=== PATIENT | male | born 1940 | race Caucasian/White ===

== ENCOUNTER 2016-09-06 17:47 | Emergency (ER) | payer BC, MEDICARE ==
[2016-09-06] MEDS ORDERED: Sodium Chloride 0.9% 1000 ML 1,000 ML IV STA (18:38)
[2016-09-06 18:43] LABS: BASOPHIL % 0.6 % (0.0-0.4); Eosinophil % 7.3 % (0.00-5.0); Granulocytes % 58.4 % (36.0-66.0); Mean Corpuscular Hemoglobin 29.3 pg (26-32); Monocytes % 13.7 % (0.0-12.0); Platelet Count 152 K/mm3 (150-450); Red Blood Count 5.25 M/mm3 (4.1-5.6); Red Cell Distribution Width 14.3 % (11.5-14.0)
--- NOTE | 2016-09-06 18:45 | ERPHSYRPT ---
- History of Present Illness Time Seen by Provider: 09/06/16 18:29 Source: patient Exam Limitations: no limitations Patient Subjective Stated Complaint: sudden onset llq abd pain at 1500 today. also having nausea. Triage Nursing Assessment: ambulated to room per self. skin w/d, color normal, resp easy. holding left abd. abd soft, tender llq. normal bowel sounds Physician History: This is a 76-year-old white male with history of high blood pressure He arrives with complaint of cough for 2-1/2 days she states this morning he took some Benadryl and some Advil that he states this afternoon he began to have severe crampy pain located in the left lower quadrant radiating to his left flank going on since 1500 patient states he has had nausea and has no vomiting no melena no hematochezia he states he has not been constipated. He denies any urinary symptoms. Patient does state that he has had a sore throat. Past medical history includes hernia, kidney stones Past surgical history includes appendectomy hernia surgery tumor removed off his back cyst and appendectomy. Timing/Duration: day(s) (cough for 2-1/2 dayswith sore throat, left lower quadrant and flank pain since 3:00 this afternoon) Severity: moderate Modifying Factors: Improves With: other (patient took Benadryl and Advil prior to symptoms) Associated Symptoms: nausea, abdominal pain (left lower quadrant abdominal pain) , cough, No vomiting, No shortness of breath, No heartburn, No diaphoresis, No chills, No chest pain, No fever, No headaches, No loss of appetite, No malaise, No rash, No syncope, No seizure, No weakness Allergies/Adverse Reactions: No Known Drug Allergies Allergy (Verified 09/06/16 18:00) Home Medications: Lisinopril 20 mg [Zestril 20 MG] 20 mg PO DAILY 09/06/16 [History] Hx Tetanus, Diphtheria Vaccination/Date Given: No Hx Influenza Vaccination/Date Given: Yes Hx Pneumococcal Vaccination/Date Given: No - Review of Systems Constitutional: No Fever, No Chills Eyes: No Symptoms Ears, Nose, & Throat: No Symptoms, Nose Congestion, Throat Pain, No Ear Pain, No Ear Discharge, No Hearing Changes, No Tinnitus, No Nose Pain, No Epistaxis, No Mouth Swelling, No Loose Teeth, No Throat Swelling, No Painful Swallowing, No Snoring Respiratory: Cough, No Cyanosis Cardiac: No Chest Pain, No Edema, No Syncope Abdominal/Gastrointestinal: Abdominal Pain (left lower quadrant abdominal pain) , Nausea, No Vomiting, No Diarrhea, No Constipation, No Hematemesis, No Hematochezia, No Melena, No Dysphagia, No Appetite Changes Genitourinary Symptoms: Flank Pain, No Dysuria, No Frequency, No Hematuria, No Hesitancy, No Incontinence, No Urgency, No Urinary Retention Musculoskeletal: No Symptoms Skin: No Rash Neurological: No Dizziness, No Focal Weakness, No Sensory Changes Psychological: No Symptoms Endocrine: No Symptoms All Other Systems: Reviewed and Negative - Past Medical History Pertinent Past Medical History: Yes Neurological History: No Pertinent History ENT History: No Pertinent History Cardiac History: No Pertinent History Respiratory History: No Pertinent History Endocrine Medical History: No Pertinent History Musculoskeletal History: No Pertinent History GI Medical History: No Pertinent History, Hernia History: Other Psycho-Social History: No Pertinent History Male Reproductive Disorders: No Pertinent History Other Medical History: kidney stones and hernia - Past Surgical History Past Surgical History: Yes Neuro Surgical History: No Pertinent History Cardiac: No Pertinent History Respiratory: No Pertinent History Gastrointestinal: Appendectomy, Hernia Repair Genitourinary: No Pertinent History Musculoskeletal: No Pertinent History Male Surgical History: No Pertinent History Other Surgical History: tumor removed off back cyst,appy 1965 - Social History Smoking Status: Never smoker Exposure to second hand smoke: No Drug Use: none Patient Lives Alone: Yes - Nursing Vital Signs Nursing Vital Signs: Initial Vital Signs Temperature 97.3 F Temperature Source Oral Pulse Rate 76 Respiratory Rate 18 Blood Pressure [] 139/77 Pain Intensity 5 - Physical Exam General Appearance: no apparent distress, alert, other (hoarse voice) Eye Exam: PERRL/EOMI, eyes nml inspection, other (fundi unremarkable) Ears, Nose, Throat Exam: normal ENT inspection, TMs normal, pharynx normal, moist mucous membranes Neck Exam: normal inspection, non-tender, supple, full range of motion Respiratory Exam: normal breath sounds, lungs clear, No respiratory distress Cardiovascular Exam: regular rate/rhythm, normal heart sounds, normal peripheral pulses Gastrointestinal/Abdomen Exam: soft, normal bowel sounds, tenderness (left lower quadrant tenderness, positive bowel sounds negative mass negative rebound) , No mass, No rebound Male Genitalia Exam: normal genitalia, other (normal male genitalia testicles descended bilaterally) Back Exam: normal inspection, normal range of motion, No CVA tenderness, No vertebral tenderness Extremity Exam: normal inspection, normal range of motion, pelvis stable Neurologic Exam: alert, oriented x 3, cooperative, normal mood/affect, nml cerebellar function, nml station & gait, sensation nml, No motor deficits Skin Exam: normal color, warm, dry, No rash SpO2 Interpretation: normal (96%) SpO2: 96 Oxygen Delivery: Room Air - Course Nursing assessment & vital signs reviewed: Yes - Radiology Exams Chest X-ray Interpretation: Reviewed by me, Other (no acute disease process) - CT Exams Abdomen/Pelvis CT Interpretation: Tele-radiologist Report (CT abdomen and pelvis impression obstructing 2.4 mm distal left ureteral stone, diverticulosis) Ordered Tests: Active Orders 24 hr Category Date Time Status IV Insertion STAT Care 09/06/16 18:38 Active ABDOMEN AND PELVIS W/0 CONTRAS [CT] Stat Exams 09/06/16 18:38 Taken CHEST 1 VIEW (PORTABLE) Stat Exams 09/06/16 18:38 Taken AMYLASE Stat Lab 09/06/16 18:20 Completed CBC W DIFF Stat Lab 09/06/16 18:20 Completed CMP Stat Lab 09/06/16 18:20 Completed CULTURE, THROAT Stat Lab 09/06/16 18:45 Received LIPASE Stat Lab 09/06/16 18:20 Completed STREP SCREEN-BETA A Stat Lab 09/06/16 18:45 Completed UA W/ MICROSCOPIC Stat Lab 09/06/16 18:40 Completed Medication Summary Discontinued Medications Generic Name Dose Route Start Last Admin Trade Name Crispinq PRN Reason Stop Dose Admin Hydrocodone Bitart/Acetaminophen 2 tab 09/06/16 20:22 [place] 5/325 Mg PO 09/06/16 20:23 SENT HOME W/ PATIENT ONE Azithromycin 500 mg 09/06/16 20:22 Zithromax 250 Mg Tablet PO 09/06/16 20:23 STAT ONE Sodium Chloride 1,000 mls @ 999 mls/hr 09/06/16 18:38 09/06/16 18:48 Sodium Chloride 0.9% 1000 Ml IV 09/06/16 19:38 999 mls/hr .Q1H1M STA Administration Sodium Chloride Confirm 09/06/16 18:47 Sodium Chloride 0.9% 1000 Ml Administered 09/06/16 18:48 Dose 1,000 mls @ ud .ROUTE .STK-MED ONE Ketorolac Tromethamine 30 mg 09/06/16 19:57 09/06/16 20:05 Toradol 30 Mg Injection IV 09/06/16 19:58 30 mg STAT ONE Administration Ketorolac Tromethamine Confirm 09/06/16 20:05 Toradol 30 Mg Injection Administered 09/06/16 20:06 Dose 30 mg .ROUTE .STK-MED ONE Tamsulosin HCl 0.4 mg 09/06/16 19:58 09/06/16 20:05 Flomax 0.4 Mg PO 09/06/16 19:59 0.4 mg ONCE STA Administration Tamsulosin HCl Confirm 09/06/16 20:05 Flomax 0.4 Mg Administered 09/06/16 20:06 Dose 0.4 mg .ROUTE .STK-MED ONE Lab/Rad Data: Laboratory Result Diagrams 09/06/16 18:20 09/06/16 18:20 Laboratory Results 09/06/16 09/06/16 09/06/16 Range/Units 18:45 18:40 18:20 WBC (4.0-10.5) K/mm3 RBC (4.1-5.6) M/mm3 Hgb (12.5-18.0) gm/dl Hct (42-50) % MCV (78-100) fl MCH (26-32) pg MCHC (32-36) g/dl RDW (11.5-14.0) % Plt Count (150-450) K/mm3 MPV (6-9.5) fl Gran % (36.0-66.0) % Lymphocytes % (24.0-44.0) % Monocytes % (0.0-12.0) % Eosinophils % (0.00-5.0) % Basophils % (0.0-0.4) % Basophils # (0-0.4) Sodium 140 (136-145) mEq/L Potassium 4.1 (3.5-5.1) mEq/L Chloride 104 (98-107) mEq/L Carbon Dioxide 24.4 (21-32) mEq/L Anion Gap 16.1 H (5-15) MEQ/L BUN 18 (9-20) mg/dL Creatinine 1.19 (0.55-1.30) mg/dl Estimated GFR > 60 ML/MIN Glucose 129 H (70-110) MG/DL Calcium 9.0 (8.5-10.1) mg/dL Total Bilirubin 0.30 (0.2-1.0) mg/dL AST 19 (15-37) U/L ALT 13 (12-78) U/L Alkaline Phosphatase 85 (46-116) U/L Serum Total Protein 7.7 (6.4-8.2) gm/dL Albumin 3.8 (3.4-5.0) g/dL Amylase 55 (25-115) U/L Lipase 104 (73-393) U/L Ur Collection Type CLEAN CATCH Urine Color YELLOW (YELLOW) Urine Appearance CLEAR (CLEAR) Urine pH 5.0 (5-6) Ur Specific [place] 1.025 (1.005-1.025) Urine Protein NEGATIVE (Negative) Urine Glucose (UA) NEGATIVE (NEGATIVE) mg/dL Urine Ketones NEGATIVE (NEGATIVE) Urine Nitrite NEGATIVE (NEGATIVE) Urine Bilirubin NEGATIVE (NEGATIVE) Urine Urobilinogen 0.2 (0-1) mg/dL Urine WBC (Auto) NEGATIVE (NEGATIVE) Urine RBC (Auto) LARGE (0-5) [place]re/ul Urine Microscopic RBC 10-15 (0-2) /HPF Ur Epithelial Cells FEW (FEW) /HPF Streptococcus Screen NEGATIVE (Negative) Specimen Received 09/06/16:1845 09/06/16 Range/Units 18:20 WBC 5.0 (4.0-10.5) K/mm3 RBC 5.25 (4.1-5.6) M/mm3 Hgb 15.4 (12.5-18.0) gm/dl Hct 45.7 (42-50) % MCV 87.0 (78-100) fl MCH 29.3 (26-32) pg MCHC 33.7 (32-36) g/dl RDW 14.3 H (11.5-14.0) % Plt Count 152 (150-450) K/mm3 MPV 12.0 H (6-9.5) fl Gran % 58.4 (36.0-66.0) % Lymphocytes % 20.0 L (24.0-44.0) % Monocytes % 13.7 H (0.0-12.0) % Eosinophils % 7.3 H (0.00-5.0) % Basophils % 0.6 (0.0-0.4) % Basophils # 0.03 (0-0.4) Sodium (136-145) mEq/L Potassium (3.5-5.1) mEq/L Chloride (98-107) mEq/L Carbon Dioxide (21-32) mEq/L Anion Gap (5-15) MEQ/L BUN (9-20) mg/dL Creatinine (0.55-1.30) mg/dl Estimated GFR ML/MIN Glucose (70-110) MG/DL Calcium (8.5-10.1) mg/dL Total Bilirubin (0.2-1.0) mg/dL AST (15-37) U/L ALT (12-78) U/L Alkaline Phosphatase (46-116) U/L Serum Total Protein (6.4-8.2) gm/dL Albumin (3.4-5.0) g/dL Amylase (25-115) U/L Lipase (73-393) U/L Ur Collection Type Urine Color (YELLOW) Urine Appearance (CLEAR) Urine pH (5-6) Ur Specific [place] (1.005-1.025) Urine Protein (Negative) Urine Glucose (UA) (NEGATIVE) mg/dL Urine Ketones (NEGATIVE) Urine Nitrite (NEGATIVE) Urine Bilirubin (NEGATIVE) Urine Urobilinogen (0-1) mg/dL Urine WBC (Auto) (NEGATIVE) Urine RBC (Auto) (0-5) Tigre/ul Urine Microscopic RBC (0-2) /HPF Ur Epithelial Cells (FEW) /HPF Streptococcus Screen (Negative) Specimen Received - Progress Progress: improved Progress Note: 09/06/16 19:59 This is a 76-year-old white male he arrives with complaints of a cold symptoms for approximately 2-3 days he's had a sore throat cough. He states today at about 3:00 he began to have pain in the left lower quadrant which was sharp severe radiating to his left flank he had no vomiting no urinary symptoms. Patient does have 10:15 red cells per high-power field in his urine chemistry essentially normal CBC is normal CT of the abdomen shows an obstructing 2.4 mm distal left ureteral stone and diverticulitis . Patient actually stated he was getting better Will upon initial arrival and was not needing pain medication now he states he is starting to have some left lower quadrant pain which has increased. Patient has received IV normal saline Will give patient Toradol 30 mg IV. Also will give patient Flomax 0.4 mg by mouth. Will plan home with Flomax 0.4 mg orally daily, [place] 5/325 #20 one to 2 orally every 4-6 hours as needed for pain. Patient is to drink plenty of fluids strain his urine. Will place patient on Zithromax for his bronchitis. Patient is to follow-up with his family doctor He is return for acute distress or for severe symptoms 09/06/16 20:23 Patient is feeling better after Toradol 30 mg IV. Will give patient Zithromax 500 mg here in the emergency room. Will give patient [place] 5/325 2 tablets to go home. He has been prescribed it with fluid prescription for Flomax, Zithromax, [place]. He has been offered a multiple times further pain medications he does not want these at this time. Patient will be discharged. - Departure Time of Disposition: 20:24 Departure Disposition: Home Clinical Impression: Left flank pain, Abdominal pain, left lower quadrant, Bronchitis Urolithiasis Qualifiers: Urinary calculus location: ureter Qualified Code(s): N20.1 - Calculus of ureter Condition: Fair Critical Care Time: No Referrals: TANVI ALICIA [Primary Care Provider] - Additional Instructions: Return home. Plenty of fluids. Zithromax Z-MELISSA as directed. Flomax 0.4 mg one orally daily #10. [place] 5/325 #20 one to 2 orally every 4-6 hours as needed for pain. Strain all urine. Follow-up with your family doctor. Return for acute distress or for severe symptoms. Prescriptions: Azithromycin 250 mg [Zithromax 250 MG TABLET] 0 mg PO ZPACK #6 tablet Hydrocodone/Acetaminophen [[place] 5-325 Tablet] 1 - 2 tab PO Q4-6HPRN PRN #20 tablet PRN Reason: Pain Tamsulosin HCl 0.4 mg [Flomax 0.4 MG] 0.4 mg PO DAILY #10 cap
[2016-09-06] MEDS ORDERED: Sodium Chloride 0.9% 1000 ML 1,000 ML ONE (18:47)
[2016-09-06 18:52] LABS: ALBUMIN 3.8 g/dL (3.4-5.0); ALKALINE PHOSPHATASE 85 U/L (46-116); ANION GAP 16.1 MEQ/L (5-15); BLOOD UREA NITROGEN 18 mg/dL (9-20); CHLORIDE 104 mEq/L (98-107); Carbon Dioxide 24.4 mEq/L (21-32); Glucose 129 MG/DL (70-110); LIPASE 104 U/L (73-393); Potassium 4.1 mEq/L (3.5-5.1); SGOT/AST 19 U/L (15-37); SGPT/ALT 13 U/L (12-78); SODIUM 140 mEq/L (136-145); Total Protein 7.7 gm/dL (6.4-8.2)
[2016-09-06 18:57] LABS: ADD URINE CULTURE? NO (NO); COMPLETE URINE MICROSCOPIC? YES; Collection Type CLEAN CATCH
[2016-09-06 18:58] LABS: Epithelial Cells FEW /HPF (FEW)
[2016-09-06 19:18] VITALS: PULSE 76
[2016-09-06] MEDS ORDERED: TORAdol 30 mg Injection IV ONE (19:57)
[2016-09-06] MEDS ORDERED: Flomax 0.4 MG PO STA (19:58)
[2016-09-06] MEDS ORDERED: Flomax 0.4 MG ONE (20:05)
[2016-09-06] MEDS ORDERED: TORAdol 30 mg Injection ONE (20:05)
[2016-09-06] MEDS ORDERED: NORCO 5/325 MG PO ONE (20:22)
[2016-09-06] MEDS ORDERED: Zithromax 250 MG TABLET PO ONE (20:22)
[2016-09-06 20:29] VITALS: BP 146/71; O2SAT 9
[2016-09-06] MEDS ORDERED: Zithromax 250 MG TABLET ONE (20:31)
[2016-09-06] MEDS ORDERED: NORCO 5/325 MG ONE (20:32)
--- NOTE | 2016-09-06 21:02 | XRAY ---
Indication: Cough. Comparison: None Portable chest slightly underinflated with minimal bibasilar atelectasis/scarring and a few scattered calcified granulomas. Remaining heart and lungs unremarkable. Bony thorax intact with osteopenia and degenerative changes. Impression: Nonacute underinflated chest with evidence for old granulomatous disease.
--- NOTE | 2016-09-06 21:07 | XRAY ---
Indication: Left lower quadrant and low back pain. Multiple contiguous axial images obtained through the abdomen and pelvis without contrast as ordered. Comparison: None Lung bases demonstrates right basilar dependent atelectasis/scarring and right lower lobe bleb. Heart is not enlarged. There is a 2-3 mm distal left ureter calculus just proximal to the UVJ. The more proximal left ureter is mildly prominent and there is moderate hydronephrosis consistent with partial obstructive uropathy. Additional bilateral renal microcalculi and bilateral renal cysts, several cysts appearing slightly dense. Noncontrasted stomach and bowel loops appear nonobstructed. Sigmoid diverticulosis without diverticulitis. No free fluid/air. A few hepatic cysts and calcified hepatic/splenic granulomas. Remaining liver, gallbladder, pancreas, spleen, adrenal glands, and bladder appear unremarkable for noncontrast exam. Mild aortoiliac calcifications. Osseous structures intact with mild/moderate degenerative changes throughout the spine including double curvature scoliosis. Impression: 1. There is a 2-3 mm distal left ureter calculus producing partial obstruction. Additional bilateral renal microcalculi and bilateral renal cysts. 2. Incidental sigmoid diverticulosis and hepatic cysts. Comment: Preliminary interpretation was made by [facility]. No critical discrepancy. CTDI 21.80
== END 2016-09-06 20:48 | disposition home or self-care (01) ==
LOC: ED 17:47
DX: R10.32 Left lower quadrant pain (principal); R10.9 Unspecified abdominal pain; J40 Bronchitis, not specified as acute or chronic; I10 Essential (primary) hypertension; Z79.899 Other long term (current) drug therapy; R11.0 Nausea
CPT/HCPCS: 36000; 36415; 71010; 74176; 80053; 81000; 82150; 83690; 85025; 87070; 87430; 96360; 96361; 96365; 99284; 99285; J1885; A9270-GY

== ENCOUNTER 2018-08-02 11:31 | Emergency (ER) | payer MEDICARE ==
--- NOTE | 2018-08-02 11:49 | ERPHSYRPT ---
- History of Present Illness Time Seen by Provider: 08/02/18 11:47 Historian: patient Patient Subjective Stated Complaint: PT states "I went to Dr. Alicia 3 days ago with abdominal pain and vomiting. The pain is now in my lower right groin and I am passing sticky black stools and vomiting up pepper looking vomit." Triage Nursing Assessment: Pt presented alert and oriented X 3, skin pwd. Pt ambulates with a hunched over gait, able to speak in clear full sentences. Pt moaning and unable to sit still. Physician History: mild to mod 4 days of constant right lower quad ache pain and dark stooling, not dizzy, no fever, no injury, hx left inguinal hernia surg Allergies/Adverse Reactions: No Known Drug Allergies Allergy (Verified 09/06/16 18:00) Home Medications: Omeprazole 40 mg PO DAILY 08/02/18 [History] Hx Tetanus, Diphtheria Vaccination/Date Given: No Hx Influenza Vaccination/Date Given: Yes Hx Pneumococcal Vaccination/Date Given: No Immunizations Up to Date: Yes - Review of Systems Constitutional: No Fever Eyes: No Vision Changes Ears, Nose, & Throat: No Mouth Pain Respiratory: No Dyspnea Cardiac: No Chest Pain Abdominal/Gastrointestinal: Abdominal Pain, Nausea, Melena Genitourinary Symptoms: No Dysuria Musculoskeletal: No Back Pain Skin: No Rash Neurological: No Dizziness, No Focal Weakness - Past Medical History Pertinent Past Medical History: Yes Neurological History: No Pertinent History ENT History: No Pertinent History Cardiac History: No Pertinent History Respiratory History: No Pertinent History Endocrine Medical History: No Pertinent History Musculoskeletal History: No Pertinent History GI Medical History: No Pertinent History, Hernia History: Other Psycho-Social History: No Pertinent History Male Reproductive Disorders: No Pertinent History Other Medical History: kidney stones and hernia - Past Surgical History Past Surgical History: Yes Neuro Surgical History: No Pertinent History Cardiac: No Pertinent History Respiratory: No Pertinent History Gastrointestinal: Appendectomy, Hernia Repair Genitourinary: No Pertinent History Musculoskeletal: No Pertinent History Male Surgical History: No Pertinent History Other Surgical History: tumor removed off back cyst,appy 1966 - Social History Smoking Status: Never smoker Exposure to second hand smoke: No Drug Use: none Patient Lives Alone: No - Nursing Vital Signs Nursing Vital Signs: Initial Vital Signs Temperature 97.8 F 08/02/18 11:39 Pulse Rate 80 08/02/18 11:39 Respiratory Rate 18 08/02/18 11:39 Blood Pressure 164/96 08/02/18 11:39 O2 Sat by Pulse Oximetry 96 08/02/18 11:39 Pain Scale Pain Intensity 4 - Physical Exam General Appearance: no apparent distress Eye Exam: eyes nml inspection, No pale conjunctivae Ears, Nose, Throat Exam: pharynx normal Neck Exam: normal inspection Respiratory Exam: normal breath sounds, No respiratory distress Cardiovascular Exam: regular rate/rhythm Gastrointestinal/Abdomen Exam: soft, tenderness, No rebound Rectal Exam: normal exam, No hemorrhoids, No blood Back Exam: CVA tenderness Extremity Exam: No contusions Neurologic Exam: alert, oriented x 3, cooperative Skin Exam: normal color, warm, dry SpO2 Interpretation: normal SpO2: 96 - Course Nursing assessment & vital signs reviewed: Yes - CT Exams Abdomen/Pelvis CT Interpretation: Discussed w/radiologist, Other (4mm right ureteral stone w/ partial obstruction) Ordered Tests: Active Orders 24 hr Category Date Time Status ABDOMEN AND PELVIS W/0 CONTRAS [CT] Stat Exams 08/02/18 11:46 Completed CBC W DIFF Stat Lab 08/02/18 11:57 Completed CMP Stat Lab 08/02/18 11:57 Completed CULTURE,URINE Stat Lab 08/02/18 13:37 Received LIPASE Stat Lab 08/02/18 11:57 Completed Lactic Acid Stat Lab 08/02/18 11:53 Completed Occult Blood, Other Screening Stat Lab 08/02/18 13:37 Completed PROTIME WITH INR Stat Lab 08/02/18 11:57 Completed UA W/RFX UR CULTURE Stat Lab 08/02/18 13:37 Completed Medication Summary Discontinued Medications Generic Name Dose Route Start Last Admin Trade Name Marilu PRN Reason Stop Dose Admin Ondansetron HCl 4 mg 08/02/18 12:00 08/02/18 12:19 Zofran 4 Mg/2 Ml Vial IV 08/02/18 12:01 4 mg STAT ONE Administration Ondansetron HCl Confirm 08/02/18 12:01 Zofran 4 Mg/2 Ml Vial Administered 08/02/18 12:02 Dose 4 mg .ROUTE .STK-MED ONE Lab/Rad Data: Laboratory Result Diagrams 08/02/18 11:57 08/02/18 11:57 Laboratory Results 08/02/18 08/02/18 08/02/18 Range/Units 13:37 13:37 11:57 WBC (4.0-10.5) K/mm3 RBC (4.1-5.6) M/mm3 Hgb (12.5-18.0) gm/dl Hct (42-50) % MCV (78-100) fl MCH (26-32) pg MCHC (32-36) g/dl RDW (11.5-14.0) % Plt Count (150-450) K/mm3 MPV (6-9.5) fl Gran % (36.0-66.0) % Eos # (Auto) (0-0.5) Absolute Lymphs (auto) (1.0-4.6) Absolute Monos (auto) (0.0-1.3) Lymphocytes % (24.0-44.0) % Monocytes % (0.0-12.0) % Eosinophils % (0.00-5.0) % Basophils % (0.0-0.4) % Absolute Granulocytes (1.4-6.9) Basophils # (0-0.4) PT 12.5 (8.83-12.87) SECONDS INR 1.07 (0.8-3.0) Sodium (137-145) mmol/L Potassium (3.5-5.1) mmol/L Chloride (98-107) mmol/L Carbon Dioxide (22-30) mmol/L Anion Gap (5-15) MEQ/L BUN (9-20) mg/dL Creatinine (0.66-1.25) mg/dL Estimated GFR ML/MIN Glucose (74-106) mg/dL Lactic Acid (0.4-2.0) Calcium (8.4-10.2) mg/dL Total Bilirubin (0.2-1.3) mg/dL AST (17-59) U/L ALT (0-50) U/L Alkaline Phosphatase (38-126) U/L Serum Total Protein (6.3-8.2) g/dL Albumin (3.5-5.0) g/dL Lipase (23-300) U/L Urine Color YELLOW (YELLOW) Urine Appearance CLOUDY (CLEAR) Urine pH 8.0 (5-6) Ur Specific [place] 1.015 (1.005-1.025) Urine Protein NEGATIVE (Negative) Urine Ketones NEGATIVE (NEGATIVE) Urine Blood LARGE (0-5) Tigre/ul Urine Nitrite POSITIVE (NEGATIVE) Urine Bilirubin NEGATIVE (NEGATIVE) Urine Urobilinogen NEGATIVE (0-1) mg/dL Ur Leukocyte Esterase SMALL (NEGATIVE) Urine WBC (Auto) 26-50 (0-5) /HPF Urine RBC (Auto) >101 (0-2) /HPF U Epithel Cells (Auto) RARE (FEW) /HPF Urine Bacteria (Auto) FEW (NEGATIVE) /HPF Urine Mucus (Auto) SLIGHT (NEGATIVE) /HPF Urine Culture Reflexed YES (NO) Urine Glucose NEGATIVE (NEGATIVE) mg/dL Stool Occult Blood NEGATIVE (Negative) 08/02/18 08/02/18 08/02/18 Range/Units 11:57 11:57 11:53 WBC 6.0 (4.0-10.5) K/mm3 RBC 5.21 (4.1-5.6) M/mm3 Hgb 15.4 (12.5-18.0) gm/dl Hct 45.8 (42-50) % MCV 87.9 (78-100) fl MCH 29.6 (26-32) pg MCHC 33.6 (32-36) g/dl RDW 13.7 (11.5-14.0) % Plt Count 175 (150-450) K/mm3 MPV 10.9 H (6-9.5) fl Gran % 65.7 (36.0-66.0) % Eos # (Auto) 0.15 (0-0.5) Absolute Lymphs (auto) 1.25 (1.0-4.6) Absolute Monos (auto) 0.62 (0.0-1.3) Lymphocytes % 20.9 L (24.0-44.0) % Monocytes % 10.4 (0.0-12.0) % Eosinophils % 2.5 (0.00-5.0) % Basophils % 0.5 (0.0-0.4) % Absolute Granulocytes 3.94 (1.4-6.9) Basophils # 0.03 (0-0.4) PT (8.83-12.87) SECONDS INR (0.8-3.0) Sodium 140 (137-145) mmol/L Potassium 4.5 (3.5-5.1) mmol/L Chloride 105 (98-107) mmol/L Carbon Dioxide 25 (22-30) mmol/L Anion Gap 15.2 H (5-15) MEQ/L BUN 17 (9-20) mg/dL Creatinine 0.95 (0.66-1.25) mg/dL Estimated GFR > 60.0 ML/MIN Glucose 141 H (74-106) mg/dL Lactic Acid 1.4 (0.4-2.0) Calcium 9.7 (8.4-10.2) mg/dL Total Bilirubin 0.60 (0.2-1.3) mg/dL AST 18 (17-59) U/L ALT 19 (0-50) U/L Alkaline Phosphatase 90 (38-126) U/L Serum Total Protein 7.6 (6.3-8.2) g/dL Albumin 4.2 (3.5-5.0) g/dL Lipase 32 (23-300) U/L Urine Color (YELLOW) Urine Appearance (CLEAR) Urine pH (5-6) Ur Specific [place] (1.005-1.025) Urine Protein (Negative) Urine Ketones (NEGATIVE) Urine Blood (0-5) Tigre/ul Urine Nitrite (NEGATIVE) Urine Bilirubin (NEGATIVE) Urine Urobilinogen (0-1) mg/dL Ur Leukocyte Esterase (NEGATIVE) Urine WBC (Auto) (0-5) /HPF Urine RBC (Auto) (0-2) /HPF U Epithel Cells (Auto) (FEW) /HPF Urine Bacteria (Auto) (NEGATIVE) /HPF Urine Mucus (Auto) (NEGATIVE) /HPF Urine Culture Reflexed (NO) Urine Glucose (NEGATIVE) mg/dL Stool Occult Blood (Negative) - Progress Progress: improved Progress Note: 08/02/18 13:55 see your doctor, return if worse, norco warnings given, keflex, zofran, flomax, oral fluids Counseled pt/family regarding: lab results, diagnosis, need for follow-up, rad results - Departure Departure Disposition: Home Clinical Impression: Urolithiasis Qualifiers: Urinary calculus location: ureter Qualified Code(s): N20.1 - Calculus of ureter Condition: Stable Critical Care Time: No Referrals: TANVI ALICIA [Primary Care Provider] - Prescriptions: Ondansetron ODT 4 MG [Zofran Odt 4 mg] 1 tab PO Q6H PRN PRN #10 tab.rapdis PRN Reason: Nausea/Vomiting Cephalexin Mh 500 mg [Keflex 500 mg] 1 cap PO QID #40 capsule Hydrocodone/APAP 5/325 [[place] 5/325 mg] 1 each PO Q4-6HPRN PRN 3 Days #9 tablet MDD 4 PRN Reason: Moderate Pain Tamsulosin HCl 0.4 mg [Flomax 0.4 MG] 1 cap PO HS #7 cap
[2018-08-02] MEDS ORDERED: Zofran 4 MG/2 ML VIAL IV ONE (12:00)
[2018-08-02] MEDS ORDERED: Zofran 4 MG/2 ML VIAL ONE (12:01)
[2018-08-02 12:06] LABS: BASOPHIL % 0.5 % (0.0-0.4); Basophil (Absolute #) 0.03 (0-0.4); Eosinophil % 2.5 % (0.00-5.0); Eosinophil (Absolute #) 0.15 (0-0.5); Granulocyte Absolute (ANC) 3.94 (1.4-6.9); Granulocytes % 65.7 % (36.0-66.0); Hematocrit 45.8 % (42-50); Hemoglobin 15.4 gm/dl (12.5-18.0); Lymphocyte (Absolute #) 1.25 (1.0-4.6); Lymphocytes % 20.9 % (24.0-44.0); Mean Cell Volume 87.9 fl (78-100); Mean Corpuscular Hemoglobin 29.6 pg (26-32); Mean Corpuscular Hgb Concent. 33.6 g/dl (32-36); Mean Platelet Volume 10.9 fl (6-9.5); Monocyte (Absolute #) 0.62 (0.0-1.3); Monocytes % 10.4 % (0.0-12.0); Platelet Count 175 K/mm3 (150-450); Red Blood Count 5.21 M/mm3 (4.1-5.6); Red Cell Distribution Width 13.7 % (11.5-14.0)
[2018-08-02 12:13] LABS: INR 1.07 (0.8-3.0); PROTIME 12.5 SECONDS (8.83-12.87)
[2018-08-02 12:18] LABS: ALBUMIN 4.2 g/dL (3.5-5.0); ALKALINE PHOSPHATASE 90 U/L (38-126); ANION GAP 15.2 MEQ/L (5-15); BLOOD UREA NITROGEN 17 mg/dL (9-20); CHLORIDE 105 mmol/L (98-107); Calcium 9.7 mg/dL (8.4-10.2); Carbon Dioxide 25 mmol/L (22-30); Creatinine 1 0.95 mg/dL (0.66-1.25); Glucose 141 mg/dL (74-106); LIPASE 32 U/L (23-300); Potassium 4.5 mmol/L (3.5-5.1); SGOT/AST 18 U/L (17-59); SGPT/ALT 19 U/L (0-50); SODIUM 140 mmol/L (137-145); Total Protein 7.6 g/dL (6.3-8.2)
--- NOTE | 2018-08-02 13:03 | XRAY ---
Indication: Right flank/groin pain. Hematuria. Nausea and vomiting. History kidney stones. Multiple contiguous axial images obtained through the abdomen and pelvis without contrast using renal stone protocol. Comparison: September 06, 2016. Lung bases again demonstrates bibasilar atelectasis/scarring. No infiltrate or effusion. Heart is not enlarged. New 3-4 mm right mid ureter calculus, approximately L3 level. Proximal right ureter slightly prominent with moderate hydronephrosis consistent with partial obstructive uropathy. Nonobstructing punctate left renal calculus. Again incidental simple and dense renal cysts bilaterally. Noncontrasted stomach and bowel loops appear nonobstructed. There is now mild diffuse scattered colonic fecal debris throughout. Diffuse colonic diverticulosis without diverticulitis. Stable hepatic cysts, calcified hepatic/splenic granulomas, and enlarged prostate gland. Remaining liver, gallbladder, pancreas, spleen, adrenal glands, and bladder appear unremarkable for noncontrast exam. Again mild aortoiliac calcifications without AAA. Osseous structures again demonstrates moderate/advanced degenerative changes throughout the spine and levorotoscoliosis. Impression: 1. New 3-4 mm right mid ureter calculus producing partial obstruction as detailed. Nonobstructing left renal punctate calculus. 2. New mild diffuse fecal stasis. 3. Stable colonic diverticulosis, bilateral renal cysts, hepatic cysts, and enlarged prostate gland. CT DI 23.68
[2018-08-02 13:40] LABS: Appearance CLOUDY (CLEAR); Bilirubin NEGATIVE (NEGATIVE); Blood LARGE Ery/ul (0-5); Glucose NEGATIVE (NEGATIVE); Ketones NEGATIVE (NEGATIVE); Leukocyte Esterase SMALL (NEGATIVE); Mucus SLIGHT /HPF (NEGATIVE); Nitrite POSITIVE (NEGATIVE); Protein,Urine Dip NEGATIVE (Negative); RBC >101 /HPF (0-2); Specific Gravity 1.015 (1.005-1.025); Urobilinogen NEGATIVE mg/dL (0-1); WBC 26-50 /HPF (0-5)
[2018-08-02 13:41] LABS: Bacteria FEW /HPF (NEGATIVE); Epithelial Cells RARE /HPF (FEW)
[2018-08-02 14:33] VITALS: BP 140/90; PULSE 88; O2SAT 97
== END 2018-08-02 14:35 | disposition home or self-care (01) ==
LOC: ED 11:31
DX: N20.1 Calculus of ureter (principal); R10.31 Right lower quadrant pain; R19.5 Other fecal abnormalities
CPT/HCPCS: 36415; 74176; 80053; 81001; 82272; 83605; 83690; 85025; 85610; 87086; 96374; 99284; J2405

== ENCOUNTER 2018-08-05 23:13 | Emergency (ER) | payer MEDICARE ==
[2018-08-05] MEDS ORDERED: TORAdol 30 mg Injection IV ONE (23:32)
[2018-08-05] MEDS ORDERED: Hydromorphone 1 mg/ml Ampule IV ONE (23:32)
[2018-08-05] MEDS ORDERED: Zofran 4 MG/2 ML VIAL IV ONE (23:32)
[2018-08-05] MEDS ORDERED: TORAdol 30 mg Injection ONE (23:35)
[2018-08-05] MEDS ORDERED: Zofran 4 MG/2 ML VIAL ONE (23:35)
[2018-08-05] MEDS ORDERED: Hydromorphone 1 mg/ml Ampule ONE (23:36)
[2018-08-05] MEDS ORDERED: Sodium Chloride 0.9% 1000 ML 1,000 ML ONE (23:36)
[2018-08-05 23:42] LABS: BASOPHIL % 0.2 % (0.0-0.4); Basophil (Absolute #) 0.02 (0-0.4); Eosinophil % 1.7 % (0.00-5.0); Eosinophil (Absolute #) 0.14 (0-0.5); Granulocyte Absolute (ANC) 5.51 (1.4-6.9); Granulocytes % 68.1 % (36.0-66.0); Hematocrit 45.1 % (42-50); Hemoglobin 15.2 gm/dl (12.5-18.0); Lymphocyte (Absolute #) 1.29 (1.0-4.6); Lymphocytes % 15.9 % (24.0-44.0); Mean Cell Volume 88.1 fl (78-100); Mean Corpuscular Hemoglobin 29.7 pg (26-32); Mean Corpuscular Hgb Concent. 33.7 g/dl (32-36); Mean Platelet Volume 11.3 fl (6-9.5); Monocyte (Absolute #) 1.14 (0.0-1.3); Monocytes % 14.1 % (0.0-12.0); Platelet Count 190 K/mm3 (150-450); Red Blood Count 5.12 M/mm3 (4.1-5.6); Red Cell Distribution Width 13.7 % (11.5-14.0); White Blood Count 8.1 K/mm3 (4.0-10.5)
--- NOTE | 2018-08-05 23:44 | ERPHSYRPT ---
- History of Present Illness Time Seen by Provider: 08/05/18 23:35 Historian: patient Exam Limitations: clinical condition Patient Subjective Stated Complaint: pt states he began having pain at approx 2000 tonight in his rt lower back and into rt groin. states he was seen in the er previously this week and was diagnosed with a kidney stone. Triage Nursing Assessment: pt alert and oriented, answers questions approp. pt ambulatory from wheelchair to stretcher without difficulty. skin warm and dry. respirations tachy, nonlabaored, lungs cta. Physician History: PATIENT WITH A HISTORY OF KIDNEY STONES, DIAGNOSED WITH A RIGHT MID URETER CALCULUS 08/02/2018, STATES HE MAY HAVE PASSED THE STONE AND COMPLAINS OF SEVERE RIGHT FLANK PAIN AT 8PM TONIGHT WHICH RADIATES TO HIS RIGHT LOWER ABDOMEN. HAS ASSOCIATED NAUSEA AND EMESIS. DENIES FEVER OR CHILLS. Timing/Duration: today Activities at Onset: none Quality: sharpness, throbbing Abdominal Pain Onset Location: RLQ, flank Pain Radiation: RLQ Severity of Pain-Max: severe Severity of Pain-Current: severe Modifying Factors: Improves With: nothing Associated Symptoms: nausea, vomiting (PAIN RADIATES INTO HIS RIGHT GROIN) Allergies/Adverse Reactions: No Known Drug Allergies Allergy (Verified 09/06/16 18:00) Home Medications: Omeprazole 40 mg PO DAILY 08/02/18 [History] Hx Tetanus, Diphtheria Vaccination/Date Given: No Hx Influenza Vaccination/Date Given: Yes Hx Pneumococcal Vaccination/Date Given: No - Review of Systems Constitutional: No Symptoms Eyes: No Symptoms Respiratory: No Symptoms Cardiac: No Symptoms Abdominal/Gastrointestinal: Abdominal Pain, Nausea, Vomiting Genitourinary Symptoms: Frequency, Flank Pain - Past Medical History Pertinent Past Medical History: Yes Neurological History: No Pertinent History ENT History: No Pertinent History Cardiac History: No Pertinent History Respiratory History: No Pertinent History Endocrine Medical History: No Pertinent History Musculoskeletal History: No Pertinent History GI Medical History: No Pertinent History, Hernia History: Other Psycho-Social History: No Pertinent History Male Reproductive Disorders: No Pertinent History Other Medical History: kidney stones and hernia - Past Surgical History Past Surgical History: Yes Neuro Surgical History: No Pertinent History Cardiac: No Pertinent History Respiratory: No Pertinent History Gastrointestinal: Appendectomy, Hernia Repair Genitourinary: No Pertinent History Musculoskeletal: No Pertinent History Male Surgical History: No Pertinent History Other Surgical History: tumor removed off back cyst,appy 1966 - Social History Smoking Status: Never smoker Exposure to second hand smoke: No Drug Use: none Patient Lives Alone: No - Nursing Vital Signs Nursing Vital Signs: Initial Vital Signs Temperature 97.0 F 08/05/18 23:14 Pulse Rate 83 08/05/18 23:14 Respiratory Rate 26 H 08/05/18 23:14 Blood Pressure 184/87 08/05/18 23:14 O2 Sat by Pulse Oximetry 97 08/05/18 23:14 Pain Scale Pain Intensity 10 - Physical Exam General Appearance: moderate distress Eye Exam: PERRL/EOMI Ears, Nose, Throat Exam: normal ENT inspection Neck Exam: normal inspection Respiratory Exam: normal breath sounds Cardiovascular Exam: regular rate/rhythm Gastrointestinal/Abdomen Exam: soft, normal bowel sounds, tenderness (RIGHT LOWER QUAD TENDERNESS) Back Exam: CVA tenderness (MODERATE RIGHT FLANK TENDERNESS) Neurologic Exam: alert, oriented x 3, cooperative Skin Exam: normal color, diaphoresis SpO2 Interpretation: normal SpO2: 97 - CT Exams Abdomen/Pelvis CT Interpretation: Tele-radiologist Report (THERE IS RIGHT URETERAL VESICLE JUNCTION 2.4MM CALCULUS WITH MODERATE HDRONEPHROSIS AND HYDROURETER, NO EVIDENCE OF APPENDICITIS, BILATERAL RENAL CYST MEASURING UP TO 2.5 CM ON THE RIGHT SOME OF WHICE APPEAR HYPER DENSE) Ordered Tests: Active Orders 24 hr Category Date Time Status IV Insertion STAT Care 08/05/18 23:32 Active ABDOMEN AND PELVIS W/0 CONTRAS [CT] Stat Exams 08/05/18 23:32 Taken BMP Stat Lab 08/05/18 23:43 Completed CBC W DIFF Stat Lab 08/05/18 23:43 Completed UA W/RFX UR CULTURE Stat Lab 08/05/18 23:32 Uncollected Medication Summary Generic Name Dose Route Start Last Admin Trade Name Freq PRN Reason Stop Dose Admin Sodium Chloride 1,000 mls @ 250 mls/hr 08/05/18 23:45 08/05/18 23:49 Sodium Chloride 0.9% 1000 Ml IV 09/04/18 23:44 250 mls/hr .Q4H NEAL Administration Discontinued Medications Generic Name Dose Route Start Last Admin Trade Name Freq PRN Reason Stop Dose Admin Hydromorphone HCl 1 mg 08/05/18 23:32 08/05/18 23:48 Hydromorphone 1 Mg/Ml Ampule IV 08/05/18 23:33 1 mg STAT ONE Administration Hydromorphone HCl Confirm 08/05/18 23:36 Hydromorphone 1 Mg/Ml Ampule Administered 08/05/18 23:37 Dose 1 mg .ROUTE .STK-MED ONE Ketorolac Tromethamine 15 mg 08/05/18 23:32 08/05/18 23:48 Toradol 30 Mg Injection IV 08/05/18 23:33 15 mg STAT ONE Administration Ketorolac Tromethamine Confirm 08/05/18 23:35 Toradol 30 Mg Injection Administered 08/05/18 23:36 Dose 30 mg .ROUTE .STK-MED ONE Ondansetron HCl 4 mg 08/05/18 23:32 08/05/18 23:47 Zofran 4 Mg/2 Ml Vial IV 08/05/18 23:33 4 mg STAT ONE Administration Ondansetron HCl Confirm 08/05/18 23:35 Zofran 4 Mg/2 Ml Vial Administered 08/05/18 23:36 Dose 4 mg .ROUTE .ST-MED ONE Lab/Rad Data: Laboratory Result Diagrams 08/05/18 23:43 08/05/18 23:43 Laboratory Results 08/05/18 08/05/18 Range/Units 23:43 23:43 WBC 8.1 (4.0-10.5) K/mm3 RBC 5.12 (4.1-5.6) M/mm3 Hgb 15.2 (12.5-18.0) gm/dl Hct 45.1 (42-50) % MCV 88.1 (78-100) fl MCH 29.7 (26-32) pg MCHC 33.7 (32-36) g/dl RDW 13.7 (11.5-14.0) % Plt Count 190 (150-450) K/mm3 MPV 11.3 H (6-9.5) fl Gran % 68.1 H (36.0-66.0) % Eos # (Auto) 0.14 (0-0.5) Absolute Lymphs (auto) 1.29 (1.0-4.6) Absolute Monos (auto) 1.14 (0.0-1.3) Lymphocytes % 15.9 L (24.0-44.0) % Monocytes % 14.1 H (0.0-12.0) % Eosinophils % 1.7 (0.00-5.0) % Basophils % 0.2 (0.0-0.4) % Absolute Granulocytes 5.51 (1.4-6.9) Basophils # 0.02 (0-0.4) Sodium 138 (137-145) mmol/L Potassium 4.0 (3.5-5.1) mmol/L Chloride 97 L (98-107) mmol/L Carbon Dioxide 25 (22-30) mmol/L Anion Gap 19.2 H (5-15) MEQ/L BUN 22 H (9-20) mg/dL Creatinine 1.19 (0.66-1.25) mg/dL Estimated GFR > 60.0 ML/MIN Glucose 126 H (74-106) mg/dL Calcium 9.5 (8.4-10.2) mg/dL - Progress Progress: improved Progress Note: 08/05/18 23:43 IV NORMAL SALINE 250ML/HR, ZOFRAN 4MG, TORADOL 15MG, DILAUDID 1MG IV Counseled pt/family regarding: lab results, diagnosis, need for follow-up, rad results - Departure Departure Disposition: Home Clinical Impression: RIGHT DISTAL URETER CALCULUS Condition: Stable Critical Care Time: No Referrals: TANVI ALICIA [Primary Care Provider] - Additional Instructions: CALL UROLOGIST DR TOVAR ON WednesdayJuly FOR APPOINTMENT AT . TAKE COPY OF CT SCAN DISC TO APPOINTMENT. TORADOL 10MG EVERY 6 HOURS FOR MILD TO MODERATE PAIN AND NORCO 10/325 EVERY 6 HOURS FOR SEVERE PAIN. FLOMAX 0.4MG DAILY. STRAIN URINE DAILY. RETURN TO EMERGENCY ROOM FOR INCREASING PAIN. Prescriptions: Hydrocodone/APAP 10/325 mg [Chelsea 10/325 MG Tablet] 1 tab PO Q6H PRN PRN # 12 tablet MDD 4 PRN Reason: Pain Tamsulosin HCl 0.4 mg [Flomax 0.4 MG] 0 mg PO DAILY #7 cap
[2018-08-05] MEDS ORDERED: Sodium Chloride 0.9% 1000 ML 1,000 ML IV SCH (23:45)
[2018-08-05 23:53] LABS: ANION GAP 19.2 MEQ/L (5-15); BLOOD UREA NITROGEN 22 mg/dL (9-20); CHLORIDE 97 mmol/L (98-107); Calcium 9.5 mg/dL (8.4-10.2); Carbon Dioxide 25 mmol/L (22-30); Creatinine 1 1.19 mg/dL (0.66-1.25); Glucose 126 mg/dL (74-106); SODIUM 138 mmol/L (137-145)
[2018-08-06] MEDS ORDERED: Norco 10/325 MG Tablet PO ONE (01:51)
[2018-08-06] MEDS ORDERED: Norco 10/325 MG Tablet ONE (01:57)
[2018-08-06 02:16] VITALS: BP 134/74; PULSE 75; O2SAT 95
--- NOTE | 2018-08-06 08:25 | XRAY ---
Indication: Right flank pain. Nausea and emesis. Multiple contiguous axial images obtained through the abdomen and pelvis without contrast as ordered. Comparison: CT renal stone study 4 days ago. Lung bases again demonstrates bibasilar atelectasis/scarring. No infiltrate or effusion. Heart is not enlarged. Noncontrasted stomach and bowel loops again nonobstructed. Stable mild diffuse scattered colonic fecal debris and colonic diverticulosis. No free fluid/air. Previous 3-4 mm right ureteral calculus has propagated distally now seen just proximal to the UVJ. Stable right sided moderate hydronephrosis and ureteral prominence consistent with obstructive uropathy. No perinephric fluid. Stable bilateral simple and dense renal cysts. Elsewhere stable hepatic cysts, calcified hepatic/splenic granulomas, and a large prostate. Impression: 1. Previous right ureteral calculus has propagated distally with continued hydronephrosis and hydroureter. 2. Stable bilateral renal cysts, hepatic cysts, fecal stasis, and colonic diverticulosis. Comment: Preliminary interpretation was made by [facility]. No discrepancy. CTDI 22.50
== END 2018-08-06 02:15 | disposition home or self-care (01) ==
LOC: ED 23:13
DX: N20.1 Calculus of ureter (principal); Z87.442 Personal history of urinary calculi
CPT/HCPCS: 36000; 36415; 74176; 80048; 85025; 96360; 96361; 96374; 96375; 99284; J1170; J1885; J2405; A9270-GY

== ENCOUNTER 2018-09-12 07:43 | Day surgery (SDC) | payer MEDICARE ==
[2018-09-12] MEDS ORDERED: DIPRIVAN 200 MG/20 ML IV ONE ×2 (07:44)
[2018-09-12] MEDS ORDERED: Lactated Ringers 1,000 ML IV SCH (08:00)
--- NOTE | 2018-09-12 08:05 | HP ---
DATE OF SURGERY: 09/12/2018 HISTORY OF PRESENT ILLNESS: The patient is a 78 year-old with some coffee ground emesis, had some kidney stones, history of polyps in the past. He is in need of upper endoscopy and colonoscopy for further evaluation given his history of coffee ground emesis and polyps in the past. PAST MEDICAL HISTORY: He denies any chronic illnesses. PAST SURGICAL HISTORY: He had a cyst removed in the past. Hernia repair. He had appendectomy in the past. He had endoscopy in the past. He had back cyst excised in the past. MEDICATIONS: None on a regular basis. ALLERGIES: NKDA. FAMILY HISTORY: Heart disease, lung disease. SOCIAL HISTORY: No alcohol abuse. REVIEW OF SYSTEMS: Fourteen systems reviewed per admission assessment. No chest pain or palpitations other systems negative or noncontributory as above and per preadmission questionnaire. PHYSICAL EXAMINATION: GENERAL: No acute distress. HEENT: Sclerae nonicteric. NECK: No JVD. CHEST: Equal excursion, nonlabored breathing. CVS: Regular rate and rhythm. ABDOMEN: Soft. No peritoneal signs. EXTREMITIES: No significant edema. NEURO: Alert, moving extremities symmetrically. No gross motor deficits noted. RECTAL: Deferred timed to endoscopy exam. IMPRESSION: History of some coffee ground hematemesis, history of some polyps, in need of upper and lower endoscopy for further evaluation. Risks and benefits explained in detail including but not limited to bleeding or infection, risk of bowel injury or perforation possibly requiring open procedure, ongoing morbidity, risk of missed or nondiagnosis or incomplete exam possibly requiring barium enema, other studies or procedures. He was explained the risk sheet and explained the procedure in detail. He understands and agrees to the planned procedure and will proceed with EGD and colonoscopy an outpatient under MAC anesthesia.
[2018-09-12] MEDS ORDERED: Zofran 4 MG/2 ML VIAL ONE (11:07)
[2018-09-12 11:55] VITALS: O2SAT 98
[2018-09-12 12:12] VITALS: BP 148/90; PULSE 62
--- NOTE | 2018-09-12 13:36 | OP ---
SURGERY DATE/TIME: 09/12/2018 1010 PREOPERATIVE DIAGNOSES: 1) History of some coffee ground emesis, nausea and bloating. 2) History of polyp, in need of follow up colonoscopy. POSTOPERATIVE DIAGNOSES: 1) Minimal gastritis. 2) Small polyp transverse colon x2. 3) Diverticulosis. 4) Small internal and external hemorrhoids. 5) Fair bowel prep. PROCEDURES: 1) EGD with cold biopsy of the antrum to evaluate for Helicobacter pylori. 2) Cold biopsy of the small bowel to evaluate for celiac sprue. 3) Random cold biopsies of esophagus to evaluate for eosinophilic esophagitis. 4) Colonoscopy to cecum hot snare polypectomy transverse colon polyp. 5) Hot biopsy second transverse colon polyp. SURGEON: Dr. Gus Dickey. ANESTHESIA: MAC. ESTIMATED BLOOD LOSS: Minimal. INDICATIONS: As noted above. Risks and benefits explained in detail and not limited to and consent obtained. DESCRIPTION OF PROCEDURE AND FINDINGS: The patient is taken to the operating room. MAC anesthesia introduced. After official time out and no disagreement with planned procedure, a bite block positioned. Video gastroscope easily passed down the esophagus through the patent pylorus to the junction of the second and third portion of the duodenum. Duodenum and duodenal bulb grossly unremarkable. Given his symptom complaints, a cold biopsy taken to evaluate for celiac sprue. Good hemostasis noted. The scope pulled back into the stomach. He had some mild erythema, possible some early minimal gastritis. Given his symptom complaints these were biopsied for ELÍAS-test for Helicobacter pylori. Good hemostasis noted. Otherwise on retroflex the gastroesophageal junction snug against the scope. The scope straightened. Gastroesophageal junction about 40 cm. Z-line was crisp. No signs of esophagitis. No signs of any obvious Blakely's or other mucosal lesions on withdrawal of the scope. Some random cold biopsies taken in the esophagus to evaluate for eosinophilic esophagitis as a possible etiology of his symptoms. The scope is withdrawn. The patient tolerated the procedure well. Attention is then turned to the colonoscopy. Digital rectal exam did not reveal any rectal masses. He did have some internal and external hemorrhoids. Video colonoscope inserted and passed up the tortuous sigmoid, descending, transverse and ascending colon. With external abdominal pressure the scope was able to be passed around to the cecum. Appendiceal orifice and valve were well visualized. Prep overall was fair with some areas of liquidy semi-solid stool suctioned irrigated clear as possible but slightly limited the exam for tiny lesions. Scope carefully withdrawn. In the transverse colon a polyp is removed with hot snare polypectomy with brief bursts of cautery. Good hemostasis noted. Small polyp about 3 mm in size. Elevating well away from bowel wall removed with hot snare. Another second polyp in the transverse colon removed with hot biopsy forceps with brief bursts of cautery. Good hemostasis noted. Otherwise he had some diverticulosis. He had some small internal and external hemorrhoids. Otherwise there were no signs of any large polyps, masses or any other obstructing lesion. The scope is withdrawn. The patient tolerated the procedure well. There were no immediate complications. Findings discussed with the family out in the waiting area.
== END 2018-09-12 12:15 | disposition home or self-care (01) ==
LOC: SDC 07:43
PROVIDERS: ATTEND Surgery
DX: Z09 Encounter for follow-up examination after completed treatment for conditions other than malignant neoplasm (principal); Z86.010 Personal history of colon polyps; K29.70 Gastritis, unspecified, without bleeding; K57.30 Diverticulosis of large intestine without perforation or abscess without bleeding; K64.4 Residual hemorrhoidal skin tags; K51.40 Inflammatory polyps of colon without complications; D12.3 Benign neoplasm of transverse colon; K64.8 Other hemorrhoids
CPT/HCPCS: 87081; 99100; J2405; J2704

== ENCOUNTER 2020-03-18 12:50 | Day surgery (SDC) | payer MEDICARE ==
--- NOTE | 2020-03-18 09:47 | HP ---
DATE OF SURGERY: 03/18/2020 HISTORY OF PRESENT ILLNESS: The patient is a 79 year old who apparently carried some 5 gallon buckets and had some pain radiating down to right scrotal/testicle area, slight bulge right inguinal area. Nothing prior to this. Hurts when he goes up and down a ladder. Left side doing okay. He does have right inguinal hernia on exam. PAST MEDICAL HISTORY: Hyperlipidemia, reflux. He denies any major chronic illnesses. PAST SURGICAL HISTORY: Cyst removed. Hernia repair. Appendectomy. Neck cyst excised. Endoscopy. MEDICATIONS: Aspirin, Lisinopril, carvedilol, atorvastatin, omeprazole, potassium gluconate, folic acid, vitamin D3 and vitamin E. ALLERGIES: NKDA. FAMILY HISTORY: Heart disease, chronic obstructive pulmonary disease. SOCIAL HISTORY: No smoking or alcohol abuse. REVIEW OF SYSTEMS: Fourteen systems reviewed negative or noncontributory as above and per preadmission questionnaire. PHYSICAL EXAMINATION: GENERAL: No acute distress. HEENT: Sclerae nonicteric. NECK: No JVD. CHEST: Equal excursion, nonlabored breathing. CVS: Regular rate and rhythm. ABDOMEN: Soft. He has got right inguinal hernia on exam. He denies any prior right inguinal hernia repair though he does seem to have a little bit of a scar in this area. EXTREMITIES: No significant edema. NEURO: Alert, oriented, moving extremities symmetrically. PSYCH: Appropriate mood and affect. IMPRESSION: Right inguinal hernia. Whether this is a primary or recurrent he does not remember repair. He does seem to have a scar down in that area. Either way he had prior abdominal surgery and desires open repair of right inguinal hernia. Risks and benefits explained in detail including bleeding or infection, risk of hematoma or seroma formation, risk black, blue and bruising, risk of urinary retention, risk of hernia recurrence, risk of mesh infection possibly requiring removal, risk of ingrown hair or suture reaction, risk of anesthesia, deep venous thrombosis, pulmonary embolism, pneumonia, general risk of aches, pains, burning, numbness lower abdomen, groin, thigh or scrotal area possible chief gauger or chronic in nature up to 10 to 12% possibly higher if he truly has had a prior repair but he could not recall, possibly interfering with sexual function from aches and pain standpoint. He understands will proceed with open repair of right inguinal hernia with mesh as an outpatient.
[~2020-03-18 12:50] MED LIST: Lactated Ringers 0 ML IV ONE; Lactated Ringers 1,000 ML IV ONE; Lactated Ringers 1,000 ML IV SCH; Sensorcaine 0.25% 10 ML ONE
[2020-03-18] MEDS ORDERED: CEFAZOLIN 2 GM-D5W BAG** 2 GM/50 ML ML IV SCH (13:30)
[2020-03-18] MEDS ORDERED: Zofran 4 MG/2 ML VIAL ONE (14:35)
[2020-03-18] MEDS ORDERED: SUBLIMAZE 100 MCG/2 ML ONE ×3 (14:35→17:01)
[2020-03-18] MEDS ORDERED: Xylocaine-Mpf 2% 5 Ml Vial ONE (14:35)
[2020-03-18] MEDS ORDERED: DIPRIVAN 200 MG/20 ML IV ONE (14:35)
[2020-03-18] MEDS ORDERED: Decadron 4 MG INJ ONE ×2 (14:35→15:55)
[2020-03-18] MEDS ORDERED: TORAdol 30 mg Injection ONE (14:53)
[2020-03-18] MEDS ORDERED: EPINEPHRINE 1MG/ML AMP ONE (15:55)
[2020-03-18] MEDS ORDERED: Naropin 0.5% 30 ML VIAL ONE (15:55)
[2020-03-18] MEDS ORDERED: Hydromorphone 1 mg/ml Injection ONE (17:04)
[2020-03-18 18:42] VITALS: BP 141/93; PULSE 87; O2SAT 94
--- NOTE | 2020-03-19 10:22 | OP ---
SURGERY DATE/TIME: 03/18/2020 1523 PREOPERATIVE DIAGNOSIS: Right inguinal hernia. POSTOPERATIVE DIAGNOSIS: Right inguinal hernia. PROCEDURES: 1) Open repair right inguinal hernia with mesh. 2) Excision of small cord lipoma. SURGEON: Dr. Gus Dickey. ANESTHESIA: General. ESTIMATED BLOOD LOSS: Minimal. INDICATIONS: As noted above. Risks and benefits explained in detail and not limited to and consent obtained. The site was confirmed and marked in the preoperative holding area. DESCRIPTION OF PROCEDURE AND FINDINGS: The patient is taken to the operating room. General anesthesia induced. Prepped and draped in usual sterile fashion. After official time out and no disagreement with planned procedure, a transverse incision made right inguinal area. Dissection carried down through Blanca fascia tying a small epigastric vein clamping, dividing and ligating small inferior epigastric vein. Dissection carried down through the Blanca. External oblique split in the direction of its fibers towards the external ring. The cord was gently mobilized up off the pubic tubercle with Richard drain. Cremasteric fibers carefully . There was a lateral cord lipoma that was kept separate from the cord this is high ligated with 3-0 suture ligature and passed off carefully protecting the visible iliohypogastric ilioinguinal nerves. At this point Cremasteric fibers . He had a moderate sized hernia sac. It was carefully from the cord structures and opened. It was noted to be devoid of content. It was high ligated with 0 Prolene and passed off. At this point the patient's direct hernia component was imbricated downward with 0 PDS to more normal size internal ring. I thought he would benefit from mesh repair. A 2x4 piece of mesh cut to appropriate dimensions with keyhole cut. It was secured to the rectus fascia medially. It was secured to the fascia overlying the pubic tubercle with 0 Prolene right along shelving portion of the inguinal ligament and Dany's ligament laterally past the internal ring with 0 Prolene, 0 Vicryl used to transfix the aponeurosis internal oblique superiorly carefully avoiding the visible iliohypogastric nerve branch. The tails of the mesh tacked down laterally with 0 Prolene. The new internal ring was felt to be not too tight and this was nice and flat in tension free manner. Good hemostasis noted. The wound is irrigated out. External oblique closed with 0 Vicryl. Blanca closed with 3-0 Vicryl. Subcu closed with 3-0 Vicryl. Skin closed with 4-0 Vicryl. 0.25% Marcaine local had been injected along the skin incision back towards the origin of the ilioinguinal nerve back towards the anterior iliac spine. The patient tolerated the procedure well. The patient was transferred to the recovery room in stable condition. There were no immediate complications. Findings discussed with the family over the phone.
== END 2020-03-18 18:52 | disposition home or self-care (01) ==
LOC: SDC 12:50
PROVIDERS: ATTEND Surgery
DX: K40.90 Unilateral inguinal hernia, without obstruction or gangrene, not specified as recurrent (principal); D17.6 Benign lipomatous neoplasm of spermatic cord
CPT/HCPCS: 49505; 55520; 64486; 76937; 76942; C1781; 99100; J0171; J0690; J1100; J1170; J1885; J2405; J2704; J2795; J3010